=== PATIENT | male | born 1960 | race Caucasian/White ===

== ENCOUNTER → 2024-04-23 | Outpatient (REF) | payer BC ==
[~2024-04-23] MED LIST: ARMONAIR DIGIH55 MCG IH; CLARITIN 1010 MG/TAB PO; COLACE 100100 MG/CAP PO; FLONASEALLERGY NS; LIPITOR 10MG10 MG PO; NORCO 325 MG-51 TAB PO; SINGULAIR 110 MG/TAB PO; STOOL SOFTENER100 M2 PO; SYSTANE HYDRATI10 ML OP
== END ==
LOC: ZCOL.LAB 17:10
DX: J32.0 Chronic maxillary sinusitis (principal)